=== PATIENT | female | born 1950 | race Two or more races ===

== ENCOUNTER 2016-09-02 12:16 | Emergency (ER) | payer OTHER ==
[2016-09-02 13:12] VITALS: BP 112/58
--- NOTE | 2016-09-02 14:52 | RAD ---
INDICATION: Right second toe injury COMPARISON: None TECHNIQUE: AP, lateral, and oblique views were obtained. FINDINGS: The bony structures, joint spaces, and soft tissues are normal for age. IMPRESSION: NO ACUTE FRACTURE
--- NOTE | 2016-09-03 13:03 | UC ---
Ruperto Richards Salem, scribed for MikeSamm sharma MD on 09/02/16 at 1351 . Lower Extremity/Ankle HPI - HPI Summary HPI Summary: In Room note: Patient is a 66 y/o female who presents to the with a right toe injury since one month ago. She reports edema since injury. Pt denies N/V/D or any other pain. She has no other complaints. MD note: Right second toe injury, VSS. Visit hx: polymyalgia rheumatica. Nurses note: C/o injuring R 2nd toe on a scale last month. States swelling continues. - History of Current Complaint Chief Complaint: UCLowerExtremity Stated Complaint: TOE INJURY Time Seen by Provider: 09/02/16 13:44 Hx Obtained From: Patient Onset/Duration: Gradual Onset, Lasting Weeks, Still Present Severity Initially: Moderate Severity Currently: Moderate Aggravating Factor(s): Standing Alleviating Factor(s): Rest Able to Bear Weight: Yes - Allergies/Home Medications Allergies/Adverse Reactions: Allergies Allergy/AdvReac Type Severity Reaction Status Date / Time No Known Allergies Allergy Verified 09/02/16 13:06 Home Medications: Home Medications Diphenhydramine-Acetaminophen [Tylenol Pm Extra Strength 500-25 mg] 1 tab PO DAILY PRN 09/02/16 [History Confirmed 09/02/16] PMH/Surg Hx/FS Hx/Imm Hx Endocrine History Of: Denies: Diabetes, Thyroid Disease Cardiovascular History Of: Denies: Cardiac Disorders, Hypertension Respiratory History Of: Denies: COPD, Asthma GI/ History Of: Denies: Ulcer - Surgical History Surgical History: Yes Surgery Procedure, Year, and Place: varicose vein repair in [facility] x2. csection x2. R knee surgery - Family History Known Family History: Positive: Respiratory Disease - Father. - Social History Alcohol Use: None Substance Use Type: None Smoking Status (MU): Never Smoked Tobacco Review of Systems Constitutional: Negative Musculoskeletal: Other: - Right toe injury. All Other Systems Reviewed And Are Negative: Yes Physical Exam Triage Information Reviewed: Yes Appearance: Well-Appearing, No Pain Distress, Obese Vital Signs: Initial Vital Signs Temp 98.2 F 09/02/16 13:08 Pulse 61 09/02/16 13:08 Resp 18 09/02/16 13:08 BP 112/58 09/02/16 13:08 Pulse Ox 100 09/02/16 13:08 Vital Signs Reviewed: Yes Eyes: Positive: Conjunctiva Clear ENT: Positive: Hearing grossly normal, Pharynx normal, TMs normal. Negative: Muffled/hoarse voice Neck: Positive: Supple, No Lymphadenopathy Respiratory: Positive: Chest non-tender, Lungs clear, Normal breath sounds, No respiratory distress Cardiovascular: Positive: RRR, No Murmur Abdomen Description: Positive: Nontender, No Organomegaly, Soft Bowel Sounds: Positive: Present Musculoskeletal: Positive: Strength Intact, Other: - ACHILLES TENDON IS GOOD. NO TENDERNESS OVER 5TH METATARSAL. LOCALIZES TENDERNESS OVER 2ND TOE WITH SWELLING. Neurological: Positive: Alert Psychological: Positive: Age Appropriate Behavior Skin: Negative: rashes Diagnostics - Radiology TOE XR Radiology Interpretation Completed By: Radiologist - IMPRESSION: NO ACUTE FRACTURE Re-Evaluation - Re-Evaluation First Eval Re-Evaluation Time: 14:46 Comment: Informed pt of imaging results and plan. Lower Extremity Course/Dx - Course Course Of Treatment: Medications have been included in the original chart and reviewed. Pt has a hx of trauma to second toe approximately 3 weeks old. She complains of swelling. I explained to pt that gravity can create swelling. She can try itzel taping her 2nd and 3rd toes and elevating extremity. XR shows no fracture. Normal BP reading and no follow-up instructions required. - Differential Dx/Diagnosis Differential Diagnosis/HQI/PQRI: Other - Contusion vs fracture. Provider Diagnoses: Contusion of right second toe. Discharge - Discharge Plan Condition: Stable Disposition: HOME Patient Education Materials: Contusion in Adults (ED) Referrals: Ramandeep Sorenson MD [Primary Care Provider] - Additional Instructions: Thank you for helping us improve patient care by filling out the My Point Survey. Take cotton and put it between toes or itzle tape 2nd and 3rd toe. Elevate leg when siting, try to get it above your heart. Only take medication for increased pain. WE DISCUSSED: You have a bad bruise of the soft tissue of the toe. This should get better over the next month. Call us for any questions or increased pain or disability. The documentation as recorded by the Ruperto diaz Salem accurately reflects the service I personally performed and the decisions made by me, Samm Pacheco MD.
== END 2016-09-02 15:00 | disposition home or self-care (01) ==
LOC: UCEAST 12:16
DX: S90.121A Contusion of right lesser toe(s) without damage to nail, initial encounter (principal); M35.3 Polymyalgia rheumatica; X58.XXXA Exposure to other specified factors, initial encounter; Y92.9 Unspecified place or not applicable
CPT/HCPCS: 99211; G0463

== ENCOUNTER 2017-11-03 09:53 | Emergency (ER) | payer OTHER ==
[2017-11-03 10:06] VITALS: BP 115/60
--- NOTE | 2017-11-03 11:15 | UC ---
Throat Pain/Nasal Sergei HPI - HPI Summary HPI Summary: A 67 y/o female presents to the E c/o throat pain onset 1-2 days ago. She notes dry cough but denies fever and chills, rhinorrhea, eye discharge, ear pain , post nasal drip, and wheezing. Pt took Amoxicillin yesterday which she had at home, states it relieved her sore throat mildly. This is SooYoung joe aBrone, documenting for attending, Dr. Randy Summers MD. - History of Current Complaint Chief Complaint: UCGeneralIllness Stated Complaint: THROAT PAIN Time Seen by Provider: 11/03/17 10:11 Hx Obtained From: Patient Onset/Duration: Lasting Days - 1-2 days, Still Present Severity: Moderate Pain Intensity: 0 Pain Scale Used: 0-10 Numeric Cough: Nonproductive - dry Associated Signs & Symptoms: Negative: Wheezing, Nasal Discharge - Allergies/Home Medications Allergies/Adverse Reactions: Allergies Allergy/AdvReac Type Severity Reaction Status Date / Time No Known Allergies Allergy Verified 11/03/17 09:59 Home Medications: Home Medications Amoxicillin PO (*) [Amoxicillin 500 MG CAP*] 500 mg PO Q12H 11/03/17 [History Confirmed 11/03/17] PMH/Surg Hx/FS Hx/Imm Hx Previously Healthy: Yes Endocrine History: Other Other Endocrine History: Neg: Thyroid disease, DM Cardiovascular History: Other Other Cardiovascular History: Neg: Cardiac Disease, HTN Respiratory History: Other - Neg: COPD, Asthma, TB Other Respiratory History: . GI/ History: Other - Neg: Ulcer Other GI/ History: No hysterectomy, - Surgical History Surgical History: Yes Surgery Procedure, Year, and Place: varicose vein repair in [place] x2. csection x2. R knee surgery - Family History Known Family History: Positive: Respiratory Disease - Father. - Social History Occupation: Works From/At Home Lives: With Family Alcohol Use: None Substance Use Type: None Smoking Status (MU): Never Smoked Tobacco Review of Systems Constitutional: Other - Neg: fever and chills Eyes: Other - Neg: crusty eyes ENT: Sore Throat, Other - Neg: Rhinorrhea; ear pain; post nasal drip Respiratory: Cough - "Dry" cough, Other - Neg: Wheezing All Other Systems Reviewed And Are Negative: Yes Physical Exam - Summary Physical Exam Summary: General: well-appearing, no pain distress Skin: warm, color reflects adequate perfusion, dry Head: normal Eyes: EOMI, OBEY ENT: Mild posterior pharynx erythema Neck: supple, nontender Respiratory: CTA, breath sounds present Cardiovascular: RRR Abdomen: soft, nontender Bowel: present Musculoskeletal: normal, strength/ROM intact Neurological: sensory/motor intact, A&O x3 Psychological: affect/mood appropriate Triage Information Reviewed: Yes Vital Signs: Initial Vital Signs Temp 98.3 F 11/03/17 09:59 Pulse 65 11/03/17 09:59 Resp 18 11/03/17 09:59 BP 115/60 11/03/17 09:59 Pulse Ox 100 11/03/17 09:59 Vital Signs Reviewed: Yes Throat Pain/Nasal Course/Dx - Course Course Of Treatment: Medications reviewed. Allergies noted. DISCUSSED VIRAL VERSES BACTERIAL INFECTIONS AND THE USE OF ANTIBIOTICS. THE PATIENT WISHES TO BE ON AN ANTIBIOTIC AT THIS TIME. F/U PMD; RECHECK SOONER IF WORSE. - Differential Dx/Diagnosis Provider Diagnoses: PHARYNGITTIS Discharge - Sign-Out/Discharge Documenting (check all that apply): Patient Departure - Discharge Plan Condition: Stable Disposition: HOME Prescriptions: Amoxicillin/Clavulanate TAB* [Augmentin TAB 875*] 875 mg PO BID #20 tab Patient Education Materials: Pharyngitis (ED) Referrals: Ramandeep Sorenson MD [Primary Care Provider] - Additional Instructions: FOLLOW UP WITH YOUR DOCTOR. GET RECHECKED FOR ANY WORSENING OF YOUR CONDITION OR QUESTIONS OR CONCERNS. - Billing Disposition and Condition Condition: STABLE Disposition: Home
== END 2017-11-03 10:24 | disposition home or self-care (01) ==
LOC: UCEAST 09:53
DX: J02.9 Acute pharyngitis, unspecified (principal)
CPT/HCPCS: 87651; 99212; G0463

== ENCOUNTER 2018-05-09 10:26 | Emergency (ER) | payer OTHER ==
[2018-05-09 10:39] VITALS: BP 130/58
--- NOTE | 2018-05-09 11:07 | UC ---
Upper Extremity HPI - HPI Summary HPI Summary: has had L wrist pain for 2 months. got worse after shoveling over past 2 weeks. reports "burning" pain ulna side wrist has tried no treatment no fall but did break wrist as child - History of Current Complaint Chief Complaint: UCUpperExtremity Stated Complaint: L WRIST INJURY Time Seen by Provider: 05/09/18 11:00 Hx Obtained From: Patient Hx Last Menstrual Period: na Onset/Duration: Gradual Onset Severity Currently: Moderate Pain Intensity: 5 Location Of Pain: Is Discrete @ - L ulna wrist Character: Burning Aggravating Factor(s): Movement Alleviating Factor(s): Nothing Associated Signs And Symptoms: Positive: Negative. Negative: Swelling, Redness - Allergies/Home Medications Allergies/Adverse Reactions: Allergies Allergy/AdvReac Type Severity Reaction Status Date / Time No Known Allergies Allergy Verified 05/09/18 10:38 Home Medications: Home Medications NK [No Home Medications Reported] 05/09/18 [History Confirmed 05/09/18] PMH/Surg Hx/FS Hx/Imm Hx Previously Healthy: Yes - Surgical History Surgical History: Yes Surgery Procedure, Year, and Place: varicose vein repair in [facility] x2. csection x2. R knee surgery - Family History Known Family History: Positive: Respiratory Disease - Father. - Social History Occupation: Employed Full-time Lives: With Family Alcohol Use: None Substance Use Type: None Smoking Status (MU): Never Smoked Tobacco Review of Systems All Other Systems Reviewed And Are Negative: Yes Constitutional: Positive: Negative Respiratory: Positive: Negative Cardiovascular: Positive: Negative Musculoskeletal: Positive: Other: - L wrist pain Neurological: Positive: Negative Psychological: Positive: Negative Is Patient Immunocompromised?: No Physical Exam Triage Information Reviewed: Yes Appearance: Well-Appearing, No Pain Distress, Well-Nourished Vital Signs: Initial Vital Signs Temp 98.1 F 05/09/18 10:32 Pulse 70 05/09/18 10:32 Resp 18 05/09/18 10:32 BP 130/58 05/09/18 10:32 Pulse Ox 100 05/09/18 10:32 Vital Signs Reviewed: Yes Respiratory Exam: Normal Respiratory: Positive: Lungs clear Cardiovascular Exam: Normal Cardiovascular: Positive: RRR Musculoskeletal: Positive: Strength Intact, ROM Intact, Other: - pain with pressure applied to distal L ulna and with radial deviation, no swelling or redness Neurological Exam: Normal Psychological Exam: Normal Skin Exam: Normal Skin: Negative: Rashes Diagnostics - Radiology No standard instances Radiology Interpretation Completed By: Radiologist - negative Upper Extremity Course/Dx - Differential Dx/Diagnosis Differential Diagnosis/HQI/PQRI: Arthritis, Bursitis, Contusion, Fracture (Open) , Strain, Sprain Provider Diagnosis: Tendonitis Discharge - Sign-Out/Discharge Documenting (check all that apply): Patient Departure All imaging exams completed and their final reports reviewed: Yes - Discharge Plan Condition: Good Disposition: HOME Patient Education Materials: Tendinitis (ED) Referrals: Ramandeep Sorenson MD [Primary Care Provider] - 1 Week (for revaluation if no better) Additional Instructions: use wrist splint from home for 1 week use ibuprofen 600mg every 6 hours with food for 1 week (over the counter) try warm pad to area of pain and elevate wrist - Billing Disposition and Condition Condition: GOOD Disposition: Home
== END 2018-05-09 11:18 | disposition home or self-care (01) ==
LOC: UCEAST 10:26
DX: M77.9 Enthesopathy, unspecified (principal)
CPT/HCPCS: 99211; G0463

== ENCOUNTER 2018-09-04 10:35 | Emergency (ER) | payer MEDICARE, OTHER ==
--- OUTSIDE RECORDS SUMMARY | 2018-09-04 10:42 | XMS REPORT | Continuity of Care Document ---
:1950 External Reference #:[id number] Author Name Surya Sánchez M.D. Address [address] [place] [address] Care Team Providers Name Role Phone Lindsay Phelan M.D. 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 Onset: 11/20/2017 Retinal detachment Surya Sánchez M.D. Onset: 11/20/2017 Family History Date Family Member(s) Observation Comments Father Cataract Mother Cataract Social History Type Date Description Comments Sex Unknown Marital Status Legal Status: Occupation Self-Employed [employer] Work Status Self Employed ETOH Use Denies alcohol use Tobacco Use Start: Unknown Patient has never smoked Recreational Drug Use Denies Drug Use Smoking Status Reviewed: 08/11/18 Patient has never smoked Allergies, Adverse Reactions, Alerts Description No Known Drug Allergies Medications Description No Active Medications Immunizations Description No Information Available Vital Signs Description No Information Available Results Description No Information Available Procedures Date Code Description Status 11/20/2017 98476 Determination Of Refractive State Completed 11/20/2017 03466 New Patient Comprehensive Exam Completed 11/29/2013 57066 Visual Field Exam Extended Completed 11/29/2013 62299 Est Patient Intermediate Exam Completed 07/22/2013 11627 Visual Field Exam Extended Completed 07/22/2013 28055 Est Patient Intermediate Exam Completed 07/22/2013 78194 Pachymetry Completed 06/19/2013 54672 Fundus Photography With Interpretation And Report Completed 06/19/2013 97197 Est Patient Comprehensive Exam Completed 05/12/2012 50276 Determination Of Refractive State Completed 05/12/2012 93914 Est Patient Comprehensive Exam Completed 08/08/2011 84222 Est Patient Comprehensive Exam Completed 07/24/2009 24625 New Patient Comprehensive Exam Completed Encounters Type Date Location Provider Dx Diagnosis Office Visit 09/25/2009 Margo Issa, 361.06 Retinal Detachment 12:15p , pietro [facility] Partial Office Visit 08/23/2009 Margo Issa, 379.21 Vitreous 1:00p pietro HUSSEIN O.D. Degeneration Plan of Treatment 08/11/2018 - Surya Sánchez M.D.H25.813 Combined forms of age-related cataract , bilateralComments:Smoking can increase the risk of developing or worsening any eye related disease, as well as affect your overall health. If you are a smoker, we strongly recommend that you quit.If you are not a smoker, we strongly recommend that you do not start. You have been diagnosed with a cataract in the righteye. If you are happy with your vision as it is, we will see you at your next scheduled appointment.If you feel like your vision is getting worse before your scheduled appointment, please call Lindsay Tinajero at [phone]. You have been diagnosed with a cataract in your left eye. It is limiting your vision, and I am unable to improve you with new glasses. Our next step is to schedule Cataract surgery and all necessary appointments, which Sudhir will do for you. We recommendthat you write down any questions you may have and bring them to your preoperative appointment so that Dr. Sánchez can answer them for you. If you have any questions or concerns, you can reach Anita Tinajero at [phone].Follow up:For preop exam before surgery. 6 Month Follow Up OTHERWISE You can expect to have your eyes dilated at your next visit. If Dr. Sánchez orders any additional testing, it may require extra time. We recommend that you bring sunglasses, as dilation drops often make you light sensitive until they wear off.We always recommend you bring someone to drive you home if you are uncomfortable driving with your eyes dilated. If you have any questions before your next visit, feel free to call our office at .M44.2 Congenital malformation of optic discH33.8 Other retinal detachmentsComments: The area in the left retina that was treated for a hole/tear looks stable. I do not see any new holes or tears in your left retina at this time. If you notice any new flashes of light or a sudden onset of floaters in your vision, please give our office a call immediately to schedule an appointment.
[2018-09-04 10:43] VITALS: BP 127/67
--- NOTE | 2018-09-04 11:46 | UC ---
Throat Pain/Nasal Sergei HPI - HPI Summary HPI Summary: 68-year-old female who has had a sore throat for 2 or 3 days and would like strep test. She denies any other symptoms. - History of Current Complaint Chief Complaint: UCGeneralIllness Stated Complaint: SORE THROAT Time Seen by Provider: 09/04/18 11:45 Hx Obtained From: Patient Hx Last Menstrual Period: na ?: No Onset/Duration: Gradual Onset Severity: Mild Pain Intensity: 9 Cough: None Associated Signs & Symptoms: Positive: Negative - Allergies/Home Medications Allergies/Adverse Reactions: Allergies Allergy/AdvReac Type Severity Reaction Status Date / Time No Known Allergies Allergy Verified 09/04/18 10:43 PMH/Surg Hx/FS Hx/Imm Hx Previously Healthy: Yes - Surgical History Surgical History: Yes Surgery Procedure, Year, and Place: varicose vein repair in [facility] x2. csection x2. R knee surgery - Family History Known Family History: Positive: Respiratory Disease - Father. - Social History Alcohol Use: None Substance Use Type: None Smoking Status (MU): Never Smoked Tobacco Review of Systems All Other Systems Reviewed And Are Negative: Yes ENT: Positive: Sore Throat Is Patient Immunocompromised?: No Physical Exam Triage Information Reviewed: Yes Appearance: Well-Appearing, No Pain Distress, Well-Nourished Vital Signs: Initial Vital Signs Temp 97.7 F 09/04/18 10:39 Pulse 74 09/04/18 10:39 Resp 16 09/04/18 10:39 BP 127/67 09/04/18 10:39 Pulse Ox 99 09/04/18 10:39 Vital Signs Reviewed: Yes Eye Exam: Normal ENT: Positive: Hearing grossly normal, Pharynx normal, TMs normal, Uvula midline Neck: Positive: Supple, Nontender, No Lymphadenopathy Respiratory: Positive: Lungs clear, Normal breath sounds, No respiratory distress, No accessory muscle use Cardiovascular: Positive: RRR, No Murmur, Pulses Normal, Brisk Capillary Refill Musculoskeletal Exam: Normal Neurological Exam: Normal Psychological Exam: Normal Skin Exam: Normal Throat Pain/Nasal Course/Dx - Course Course Of Treatment: Rapid strep test was negative. The patient's follow-up next week with her primary care provider if no improvement on Friday. She was offered magic mouthwash but refused that. - Differential Dx/Diagnosis Provider Diagnosis: Pharyngitis Discharge - Sign-Out/Discharge Documenting (check all that apply): Patient Departure All imaging exams completed and their final reports reviewed: No Studies - Discharge Plan Condition: Fair Disposition: HOME Patient Education Materials: Pharyngitis (ED) Referrals: Lindsay Phelan MD [Primary Care Provider] - Additional Instructions: Warm saltwater gargles, throat messages, Motrin 600 mg every 8 hours as needed for pain or fever. Follow-up with your primary care provider next week if no improvement. - Billing Disposition and Condition Condition: FAIR Disposition: Home
== END 2018-09-04 12:29 | disposition home or self-care (01) ==
LOC: UCEAST 10:35
DX: J02.9 Acute pharyngitis, unspecified (principal)
CPT/HCPCS: 87651; 99211; G0463

== ENCOUNTER 2018-12-15 07:48 | Day surgery (SDC) | payer MEDICARE, OTHER ==
[~2018-12-15 07:48] MED LIST: Acetaminophen TAB* 325 MG PO PRN; Buffered Lidocaine 1% SYRIN* 1 ML/SYRINGE INTRADERM ONE
[2018-12-15] MEDS ORDERED: Midazolam* 1 MG/ML 2 ML VIAL (2 MG) ONE (09:09)
[2018-12-15] MEDS ORDERED: fentaNYL* 50 MCG/ML 2 ML VIAL (100 MCG VIAL) ONE (09:10)
[2018-12-15 10:10] VITALS: BP 118/62
--- NOTE | 2018-12-15 10:24 | OP ---
OPERATIVE REPORT: DATE OF OPERATION: 12/15/18 [facility] DATE OF : 52 SURGEON: Dr. Allen Shook. SUBGRADE TESTER: None. ANESTHESIA: Topical with intravenous sedation. PRE-OP DIAGNOSIS: Cataract, left eye. POST-OP DIAGNOSIS: Cataract, left eye. OPERATIVE PROCEDURE: Phacoemulsification and cataract extraction with posterior chamber intraocular lens implant, left eye. COMPLICATIONS: None. BLOOD LOSS: None. OPERATIVE FINDINGS: The patient was brought to the operating room and received a small amount of intravenous sedation. A drop of Tetracaine was placed in her left eye. She was prepped and draped in the usual sterile fashion for ophthalmic surgery and attention was directed to the left eye where a speculum was placed. A paracentesis was created at the 5 o'clock position and 0.1 cc of 1 percent preservative-free Lidocaine was injected into the anterior chamber followed by DisCoVisc. The eye was digitally stabilized while a 2.75 mm keratome was used to create a triplanar clear corneal incision at the 3 o'clock position. A continuous curvilinear capsulorrhexis was created with a cystotome and Utrata forceps. BSS on a cannula was used to hydrodissect the lens from the capsule. Phacoemulsification was performed in a [id number] technique to create four fragments which were removed. Residual cortical material was removed with irrigation and aspiration. DisCoVisc was used to inflate the capsular bag and an SN60AT AU00T0 20.5 diopter lens was folded and inserted into the capsular bag. DisCoVisc was removed using irrigation and aspiration. BSS on a cannula was used to hydrate the corneal stroma and seal the wound. At the end of the case the pupil was round and the lens was centered. The eye was of normal pressure and the wound was water tight. The speculum was removed and topical Maxitrol ointment was placed on the surface of the eye. The eye was closed, patched and shielded and the patient was sent to the recovery room in stable condition with post operative instructions and follow-up appointment given. [id number]/CPS #: [id number] MTDD
[2018-12-15] MEDS ORDERED: Tetracaine 0.5% OPTH.SOL 4 ML* 1 DROP BTL ONE (11:11)
[2018-12-15] MEDS ORDERED: Cyclopentolate 1% OPTH.SOL* 2 ML BTL ONE (11:11)
[2018-12-15] MEDS ORDERED: Neomycin/Polymy/Dex OPHTH.OIN* 3.5 GM ONE (11:11)
[2018-12-15] MEDS ORDERED: Tropicamide 1% OPTH.SOL* BTL ONE (11:11)
[2018-12-15] MEDS ORDERED: Lidocaine 1% MPF ** 5 ML VIAL ONE (11:11)
[2018-12-15] MEDS ORDERED: Phenylephrine OPHTH SOL 2.5%* 2 ML ONE (11:11)
[2018-12-15] MEDS ORDERED: Ketorolac 0.5% OPHTH (NF) 0.5 % 5 ML BTL ONE (11:11)
== END 2018-12-15 10:01 | disposition home or self-care (01) ==
LOC: OREAST 07:48
PROVIDERS: ATTEND Ophthalmology
DX: H25.12 Age-related nuclear cataract, left eye (principal); D56.3 Thalassemia minor
CPT/HCPCS: A9270-GY; J2250; J3010; V2632

== ENCOUNTER 2018-12-22 09:49 | Day surgery (SDC) | payer MEDICARE, OTHER ==
[~2018-12-22 09:49] MED LIST changes: +Cyclopentolate 1% OPTH.SOL* 2 ML BTL ONE; +Ketorolac 0.5% OPHTH (NF) 0.5 % 5 ML BTL ONE; +Lidocaine 1% MPF ** 5 ML VIAL ONE; +Neomycin/Polymy/Dex OPHTH.OIN* 3.5 GM ONE; +Phenylephrine OPHTH SOL 2.5%* 2 ML ONE; +Tetracaine 0.5% OPTH.SOL 4 ML* 1 DROP BTL ONE; +Tropicamide 1% OPTH.SOL* BTL ONE
[2018-12-22] MEDS ORDERED: Midazolam* 1 MG/ML 2 ML VIAL (2 MG) ONE (10:59)
[2018-12-22] MEDS ORDERED: fentaNYL* 50 MCG/ML 2 ML VIAL (100 MCG VIAL) ONE (10:59)
--- NOTE | 2018-12-22 12:50 | OP ---
DATE OF OPERATION/DATE OF DICTATION: 12/22/2018 - [facility] DATE OF : 1950. SURGEON: Dr. Allen Shook. SEWAGE PLANT ATTENDANT: None. ANESTHESIA: Topical with intravenous sedation. PRE-OP DIAGNOSIS: Cataract, right eye. POST-OP DIAGNOSIS: Cataract, right eye. OPERATIVE PROCEDURE: Phacoemulsification and cataract extraction with posterior chamber intraocular lens implant, right eye. COMPLICATIONS: None. BLOOD LOSS: None. DESCRIPTION OF PROCEDURE: The patient was brought to the operating room and received a small amount of intravenous sedation. A drop of Tetracaine was placed in her right eye. She was prepped and draped in the usual sterile fashion for ophthalmic surgery and attention was directed to the right eye where a speculum was placed. A paracentesis was created at the 11 o'clock position and 0.1 cc of 1 percent preservative-free Lidocaine was injected into the anterior chamber followed by DisCoVisc. The eye was digitally stabilized while a 2.75 mm keratome was used to create a triplanar clear corneal incision at the 9 o'clock position. A continuous curvilinear capsulorrhexis was created with a cystotome and Utrata forceps. BSS on a cannula was used to hydrodissect the lens from the capsule. Phacoemulsification was performed in a divide-and- conquer technique to create four fragments which were removed. Residual cortical material was removed with irrigation and aspiration. DisCoVisc was used to inflate the capsular bag and an AUOOTO 21.0 diopter lens was folded and inserted into the capsular bag. DisCoVisc was removed using irrigation and aspiration. BSS on a cannula was used to hydrate the corneal stroma and seal the wound. At the end of the case the pupil was round and the lens was centered. The eye was of normal pressure and the wound was water tight. The speculum was removed and topical Maxitrol ointment was placed on the surface of the eye. The eye was closed, patched and shielded and the patient was sent to the recovery room in stable condition with post operative instructions and follow-up appointment given. [id number]/CPS #: [id number] MTDD
[2018-12-22 14:01] VITALS: BP 113/50
== END 2018-12-22 12:02 | disposition home or self-care (01) ==
LOC: OREAST 09:49
PROVIDERS: ATTEND Ophthalmology
DX: H25.11 Age-related nuclear cataract, right eye (principal); D56.3 Thalassemia minor
CPT/HCPCS: A9270-GY; J2250; J3010; V2632